=== PATIENT | female | born 1970 | race African-American/Black ===

== ENCOUNTER 2018-10-17 19:34 | Inpatient (IN) | payer OTHER ==
[~2018-10-17] VITALS: Ht 165.1 cm; Wt 164.8 kg
[~2018-10-17 19:34] MED LIST: ETOMIDATE 2MG/ML 10ML VIAL IV ONE; SUCCINYLCHOLINE CHLORIDE 200MG/10ML IV ONE
[2018-10-17] MEDS ORDERED: ETOMIDATE 2MG/ML 10ML VIAL IV ONE (20:00)
[2018-10-17] MEDS ORDERED: SUCCINYLCHOLINE CHLORIDE 200MG/10ML IV ONE (20:00)
[2018-10-17] MEDS ORDERED: LEVETIRACETAM 1000MG/100ML 100 ML IV ONE (20:00)
[2018-10-17] MEDS ORDERED: NICARDIPINE 40MG/200ML PREMIX 200 ML IV SCH (20:00)
[2018-10-17 20:02] LABS: BASOPHILS % 0.6 % (0.0-2.0); EOSINOPHILS % 1.9 % (0.0-5.0); HEMATOCRIT. 39.9 % (36.0-48.0); HEMOGLOBIN. 11.9 g/dL (12.0-16.0); LYMPHOCYTES % 43.3 % (20.0-50.0); MEAN CORPUSCULAR HEMOGLOBIN 19.6 pg (28.0-32.0); MEAN CORPUSCULAR VOLUME 65.8 fL (81.0-99.0); MEAN PLATELET VOLUME 9.2 fl (7.4-10.4); MONOCYTES % 5.8 % (2.0-8.0); NEUTROPHILS % 48.4 % (40.0-76.0); PLATELET 220 x1000/uL (130-400); RED BLOOD CELL COUNT 6.06 mill/uL (4.2-5.4); RED CELL DISTRIBUTION WIDTH 17.5 % (11.6-14.6)
[2018-10-17 20:07] LABS: CHLORIDE 101 mEq/L (98-107)
[2018-10-17 20:08] LABS: INR 1.1; PROTHROMBIN TIME 10.7 sec (9.1-11.1)
[2018-10-17 20:12] LABS: ETHANOL BLOOD < 10 mg/dL
[2018-10-17] MEDS ORDERED: MANNITOL 12.5G (25%) VIAL 50ML IV ONE ×2 (20:15→20:30)
[2018-10-17 20:26] LABS: PLATELET ESTIMATE NORMAL
[2018-10-17] MEDS ORDERED: KCL 20MEQ/100ML PREMIX 100 ML IV ONE (20:30)
[2018-10-17] MEDS ORDERED: MIDAZOLAM HCL 2 MG/2 ML VIAL IV ONE (20:30)
[2018-10-17] MEDS ORDERED: MIDAZOLAM HCL 50 MG in DEXTROSE 5% WATER 40 ML IV ONE ×2 (20:30→21:00)
[2018-10-17] MEDS ORDERED: IOHEXOL-350 100 ML BOTTLE ONE (21:48)
[2018-10-17 21:52] LABS: BG BASE EXCESS 1.2 mmol/L (-2.0-2.0); BG CARBOXYHEMOGLOBIN 0.6 % (0.5-1.5); BG DEOXYHEMOGLOBIN 6.3 % (0.0-5.0); BG FRACTION INSPIRED OXYGEN 50; BG HCO3 ACT 27.6 mmol/L (22.0-26.0); BG METHEMOGLOBIN 0.1 % (0.0-1.5); BG OXYGEN SATURATION 93.7 % (92.0-98.5); BG PCO2 51.8 mmHg (35.0-45.0); BG PEEP (cmH2O) 0 cmH2O; BG PH 7.345 (7.350-7.450); BG PO2 72.2 mmHg (75.0-100.0); BG SAMPLE SITE LEFT RADIAL; BG TIDAL VOLUME(mL) 550 mL; BG TOTAL HEMOGLOBIN 12.1 g/dL (12.0-18.0); BG VENT MODE VENT - A/C; BG VENT RATE 16 set
[2018-10-17 21:54] LABS: CLARITY URINE CLEAR (CLEAR); COLOR URINE YELLOW (YELLOW); KETONES URINE TRACE (NEGATIVE); LEUKOCYTE ESTERASE URINE NEGATIVE (NEGATIVE); NITRITE URINE POSITIVE (NEGATIVE); OCCULT BLOOD URINE TRACE (NEGATIVE); PH URINE 6.5 (4.5-8.0); PROTEIN URINE 2+ (NEGATIVE); SPECIFIC GRAVITY URINE 1.016 (1.005-1.030); UROBILINOGEN URINE 0.2 E.U./dL (0.2-1.0)
[2018-10-18] VITALS (83 sets, daily range): BP systolic 14–196; BP diastolic 13–104
[2018-10-18] MEDS ORDERED: MANNITOL 12.5G (25%) VIAL 50ML IV SCH (00:49)
[2018-10-18] MEDS ORDERED: NICARDIPINE 100 MG in SODIUM CHLORIDE 0.9% 60 ML IV PRN (01:00)
[2018-10-18] MEDS: DEXAMETHASONE 4MG/ML 1ML VIAL IV SCH ×4 (01:21→17:28)
[2018-10-18] MEDS: DEXT 5%/LACTATED RINGERS 1,000 ML IV SCH ×2 (01:21→17:14)
[2018-10-18] MEDS: NICARDIPINE 100 MG in SODIUM CHLORIDE 0.9% 60 ML IV PRN ×4 (01:22→18:08)
[2018-10-18] MEDS ORDERED: PIPERACILLIN/TAZ 3.375G PREMIX 50 ML IV ONE (01:30)
[2018-10-18] MEDS ORDERED: VANCOMYCIN 1 G PREMIX 200 ML IV ONE (01:30)
[2018-10-18] MEDS ORDERED: MANNITOL 20% IV SCH (02:00)
[2018-10-18] MEDS ORDERED: MIDAZOLAM HCL 50 MG in DEXTROSE 5% WATER 40 ML IV PRN (02:00)
[2018-10-18] MEDS: MANNITOL 20% (20GM/100ML) BAG 500ML PREMIX IV SCH ×2 (02:29→08:29)
[2018-10-18] MEDS ORDERED: MANNITOL 20% (20GM/100ML) BAG 500ML PREMIX IV SCH (03:30)
[2018-10-18 04:38] LABS: CLARITY URINE CLEAR (CLEAR); COLOR URINE YELLOW (YELLOW); KETONES URINE TRACE (NEGATIVE); LEUKOCYTE ESTERASE URINE NEGATIVE (NEGATIVE); NITRITE URINE NEGATIVE (NEGATIVE); OCCULT BLOOD URINE 2+ (NEGATIVE); PH URINE 6.5 (4.5-8.0); PROTEIN URINE 2+ (NEGATIVE); SPECIFIC GRAVITY URINE 1.034 (1.005-1.030); UROBILINOGEN URINE 0.2 E.U./dL (0.2-1.0)
[2018-10-18 04:45] LABS: METHADONE URINE SCREEN NEGATIVE (NEGATIVE); OPIATES URINE SCREEN NEGATIVE (NEGATIVE); PHENCYCLIDINE URINE SCREEN NEGATIVE (NEGATIVE)
[2018-10-18 04:46] LABS: *BARBITURATES SCREEN URINE NEGATIVE (NEGATIVE); *BENZODIAZEPINES SCREEN URINE PRESUMTIVE POSITIVE (NEGATIVE); *COCAINE SCREEN URINE NEGATIVE (NEGATIVE); CANNABINOID URINE SCREEN NEGATIVE (NEGATIVE)
[2018-10-18 04:47] LABS: *AMPHETAMINES SCREEN URINE NEGATIVE (NEGATIVE)
[2018-10-18 08:28] LABS: BG BASE EXCESS 2.2 mmol/L (-2.0-2.0); BG CARBOXYHEMOGLOBIN 0.5 % (0.5-1.5); BG DEOXYHEMOGLOBIN 4.4 % (0.0-5.0); BG FRACTION INSPIRED OXYGEN 60; BG HCO3 ACT 26.9 mmol/L (22.0-26.0); BG METHEMOGLOBIN 0.3 % (0.0-1.5); BG OXYGEN SATURATION 95.6 % (92.0-98.5); BG OXYHEMOGLOBIN 94.8 % (94.0-97.0); BG PCO2 42.3 mmHg (35.0-45.0); BG PH 7.421 (7.350-7.450); BG PO2 73.8 mmHg (75.0-100.0); BG SAMPLE SITE RIGHT RADIAL; BG TIDAL VOLUME(mL) 550 mL; BG TOTAL HEMOGLOBIN 11.6 g/dL (12.0-18.0); BG VENT MODE VENT - A/C; BG VENT RATE 22 set
[2018-10-18] MEDS ORDERED: DEXTROSE 50% WATER 50ML SYRINGE IV PRN (08:45)
[2018-10-18] MEDS: INSULIN LISPRO 100 UNITS/ML SUBCUT SCH ×4 (08:47→21:08)
[2018-10-18] MEDS ORDERED: LIDOCAINE HCL/EPINEPHRINE 1%-EPI 1:100,000 20 ML VIAL ONE (08:47)
[2018-10-18] MEDS: BLOOD SUGAR DIAGNOSTIC STRIP TEST SCH ×4 (08:47→21:00)
[2018-10-18] MEDS ORDERED: GELATIN SPONGE,ABSORBABLE 12-7MM SPONGE ONE (08:47)
[2018-10-18] MEDS ORDERED: NORMAL SALINE 0.9% 10 ML SYR ONE (08:48)
[2018-10-18] MEDS ORDERED: THROMBIN (BOVINE) 5000 UNITS/VIAL TOP ONE ×2 (08:48→08:49)
[2018-10-18] MEDS ORDERED: BACITRACIN 50,000 UNITS/VIAL ONE (08:49)
[2018-10-18] MEDS: LEVETIRACETAM 500 MG in SODIUM CHLORIDE 0.9% 100 ML IV SCH ×3 (09:00→21:08)
[2018-10-18] MEDS ORDERED: LEVETIRACETAM 500 MG in SODIUM CHLORIDE 0.9% 100 ML IV SCH (09:00)
[2018-10-18] MEDS: FAMOTIDINE 20MG/2ML VIAL IV SCH (09:00)
[2018-10-18] MEDS ORDERED: CEFAZOLIN SODIUM 1000MG/VIAL ONE (09:13)
[2018-10-18] MEDS: CEFTRIAXONE 1 G PREMIX 50 ML IV SCH (10:00)
[2018-10-18] MEDS ORDERED: BACITRACIN 15GM TUBE TOP ONE (10:10)
[2018-10-18] MEDS ORDERED: ROCURONIUM BROMIDE 10MG/ML VIAL 5ML IV ONE (10:10)
[2018-10-18 10:22] LABS: HEMATOCRIT. 37.9 % (36.0-48.0); HEMOGLOBIN. 11.5 g/dL (12.0-16.0); MEAN CORPUSCULAR HEMOGLOBIN 19.7 pg (28.0-32.0); MEAN CORPUSCULAR VOLUME 64.6 fL (81.0-99.0); MEAN PLATELET VOLUME 9.6 fl (7.4-10.4); PLATELET 195 x1000/uL (130-400); RED BLOOD CELL COUNT 5.87 mill/uL (4.2-5.4); RED CELL DISTRIBUTION WIDTH 17.2 % (11.6-14.6)
[2018-10-18 10:34] LABS: CHLORIDE 104 mEq/L (98-107)
[2018-10-18 10:41] LABS: LDL CHOLESTEROL 61 mg/dL (5-100)
[2018-10-18 10:42] LABS: CREATINE KINASE 512 IU/L (26-192); HDL CHOLESTEROL 49 mg/dL (40-59)
[2018-10-18] MEDS ORDERED: PROPOFOL 10MG/ML 100ML 100 ML IV PRN (11:00)
[2018-10-18] MEDS ORDERED: HYDRALAZINE 20MG/ML VIAL IV PRN (11:33)
[2018-10-18] MEDS ORDERED: LABETALOL HCL 20MG/4ML CARPUJECT IV NR (11:41)
[2018-10-18] MEDS ORDERED: MORPHINE SULFATE 10 MG/ML CPJ IV NR (11:45)
[2018-10-18] MEDS: PROPOFOL 10MG/ML 100ML 100 ML IV PRN ×6 (11:45→22:46)
[2018-10-18] MEDS ORDERED: LABETALOL HCL 20MG/4ML CARPUJECT IV ONE (11:48)
[2018-10-18] MEDS ORDERED: MORPHINE SULFATE 10 MG/ML CPJ ONE (11:53)
[2018-10-18 13:41] LABS: PLATELET ESTIMATE NORMAL
[2018-10-18] MEDS: MORPHINE SULFATE 4 MG/ML CPJ (NOT FOR IM USE) IV PRN ×2 (15:21→22:21)
[2018-10-19] VITALS (99 sets, daily range): BP systolic 0–176; BP diastolic 0–167
[2018-10-19] MEDS: PROPOFOL 10MG/ML 100ML 100 ML IV PRN ×8 (00:33→23:30)
[2018-10-19] MEDS: NICARDIPINE 100 MG in SODIUM CHLORIDE 0.9% 60 ML IV PRN ×4 (01:41→23:30)
[2018-10-19] MEDS: MORPHINE SULFATE 4 MG/ML CPJ (NOT FOR IM USE) IV PRN ×2 (01:44→07:51)
[2018-10-19] MEDS: BLOOD SUGAR DIAGNOSTIC STRIP TEST SCH ×5 (06:16→20:37)
[2018-10-19] MEDS: DEXAMETHASONE 4MG/ML 1ML VIAL IV SCH ×5 (06:23→23:16)
[2018-10-19] MEDS: DEXT 5%/LACTATED RINGERS 1,000 ML IV SCH (06:23)
[2018-10-19] MEDS: INSULIN LISPRO 100 UNITS/ML SUBCUT SCH ×4 (06:25→21:03)
[2018-10-19] MEDS ORDERED: LIDOCAINE HCL 1% 20ML VIAL (Pyxis) INJ ONE (08:16)
[2018-10-19] MEDS ORDERED: MANNITOL 20% 500 ML IV ONE (08:42)
[2018-10-19] MEDS ORDERED: MANNITOL 20% (20GM/100ML) BAG 500ML PREMIX IV ONE (08:45)
[2018-10-19] MEDS ORDERED: MANNITOL 20% 200 ML IV ONE (09:00)
[2018-10-19] MEDS: LEVETIRACETAM 500 MG in SODIUM CHLORIDE 0.9% 100 ML IV SCH ×2 (09:33→20:37)
[2018-10-19] MEDS: FAMOTIDINE 20MG/2ML VIAL IV SCH (09:37)
[2018-10-19] MEDS: CEFTRIAXONE 1 G PREMIX 50 ML IV SCH (10:09)
[2018-10-19] MEDS: MORPHINE SULFATE 100 MG in DEXT 5% WATER 90 ML IV PRN ×2 (10:12→19:08)
[2018-10-19] MEDS ORDERED: FUROSEMIDE 20MG/2ML VIAL IVP NR ×2 (12:45→21:30)
[2018-10-19] MEDS ORDERED: SODIUM CHLORIDE 3% 500 ML IV SCH (12:45)
[2018-10-19 13:02] LABS: BG CARBOXYHEMOGLOBIN 0.3 % (0.5-1.5); BG DEOXYHEMOGLOBIN 8.6 % (0.0-5.0); BG FRACTION INSPIRED OXYGEN 80; BG HCO3 ACT 21.2 mmol/L (22.0-26.0); BG OXYGEN SATURATION 91.4 % (92.0-98.5); BG OXYHEMOGLOBIN 91.1 % (94.0-97.0); BG PCO2 34.7 mmHg (35.0-45.0); BG PH 7.404 (7.350-7.450); BG PO2 63.8 mmHg (75.0-100.0); BG SAMPLE SITE A-LINE; BG TIDAL VOLUME(mL) 550 mL; BG TOTAL HEMOGLOBIN 10.2 g/dL (12.0-18.0); BG VENT MODE VENT - A/C; BG VENT RATE 22 set
[2018-10-19] MEDS: MANNITOL 20% 100 ML IV SCH ×2 (14:04→19:08)
[2018-10-19] MEDS: SODIUM CHLORIDE 3% 500 ML IV SCH (14:04)
[2018-10-19] MEDS ORDERED: MANNITOL 20% (20GM/100ML) BAG 500ML PREMIX IV SCH (15:00)
[2018-10-19] MEDS ORDERED: DEXTROSE 50% WATER 50ML SYRINGE IV PRN (19:00)
[2018-10-20] VITALS (111 sets, daily range): BP systolic 94–188; BP diastolic 46–181
[2018-10-20] MEDS: MANNITOL 20% 100 ML IV SCH ×3 (02:25→07:00)
[2018-10-20] MEDS: BLOOD SUGAR DIAGNOSTIC STRIP TEST SCH ×5 (06:09→21:00)
[2018-10-20] MEDS: DEXAMETHASONE 4MG/ML 1ML VIAL IV SCH ×4 (06:10→23:54)
[2018-10-20] MEDS: INSULIN LISPRO 100 UNITS/ML SUBCUT SCH ×4 (06:11→21:48)
[2018-10-20] MEDS: MORPHINE SULFATE 100 MG in DEXT 5% WATER 90 ML IV PRN ×2 (06:21→23:54)
[2018-10-20] MEDS: NICARDIPINE 100 MG in SODIUM CHLORIDE 0.9% 60 ML IV PRN ×2 (06:45→18:00)
[2018-10-20 06:52] LABS: BG BASE EXCESS -5.7 mmol/L (-2.0-2.0); BG CARBOXYHEMOGLOBIN 0.3 % (0.5-1.5); BG DEOXYHEMOGLOBIN 18.4 % (0.0-5.0); BG FRACTION INSPIRED OXYGEN 100; BG HCO3 ACT 22.2 mmol/L (22.0-26.0); BG METHEMOGLOBIN 0.2 % (0.0-1.5); BG OXYGEN SATURATION 81.5 % (92.0-98.5); BG OXYHEMOGLOBIN 81.1 % (94.0-97.0); BG PCO2 55.1 mmHg (35.0-45.0); BG PH 7.223 (7.350-7.450); BG SAMPLE SITE A-LINE; BG TIDAL VOLUME(mL) 550 mL; BG TOTAL HEMOGLOBIN 11.3 g/dL (12.0-18.0); BG VENT MODE VENT - A/C; BG VENT RATE 22 set
[2018-10-20 09:27] LABS: BG BASE EXCESS -6.1 mmol/L (-2.0-2.0); BG CARBOXYHEMOGLOBIN 0.2 % (0.5-1.5); BG DEOXYHEMOGLOBIN 15.3 % (0.0-5.0); BG FRACTION INSPIRED OXYGEN 100; BG HCO3 ACT 20.4 mmol/L (22.0-26.0); BG METHEMOGLOBIN 0.1 % (0.0-1.5); BG OXYGEN SATURATION 84.7 % (92.0-98.5); BG OXYHEMOGLOBIN 84.4 % (94.0-97.0); BG PCO2 44.7 mmHg (35.0-45.0); BG PH 7.278 (7.350-7.450); BG PO2 54.5 mmHg (75.0-100.0); BG SAMPLE SITE A-LINE; BG TIDAL VOLUME(mL) 550 mL; BG TOTAL HEMOGLOBIN 10.3 g/dL (12.0-18.0); BG VENT MODE VENT - A/C; BG VENT RATE 22 set
[2018-10-20] MEDS: FAMOTIDINE 20MG/2ML VIAL IV SCH (09:59)
[2018-10-20] MEDS: LEVETIRACETAM 500 MG in SODIUM CHLORIDE 0.9% 100 ML IV SCH ×2 (10:00→21:40)
[2018-10-20] MEDS: CEFTRIAXONE 1 G PREMIX 50 ML IV SCH (11:20)
[2018-10-20] MEDS: SODIUM CHLORIDE 3% 500 ML IV SCH (11:21)
[2018-10-20 11:22] LABS: BG BASE EXCESS -3.9 mmol/L (-2.0-2.0); BG CARBOXYHEMOGLOBIN 0.3 % (0.5-1.5); BG DEOXYHEMOGLOBIN 13.8 % (0.0-5.0); BG FRACTION INSPIRED OXYGEN 100; BG HCO3 ACT 21.8 mmol/L (22.0-26.0); BG METHEMOGLOBIN 0.2 % (0.0-1.5); BG OXYGEN SATURATION 86.1 % (92.0-98.5); BG OXYHEMOGLOBIN 85.7 % (94.0-97.0); BG PCO2 42.4 mmHg (35.0-45.0); BG PH 7.329 (7.350-7.450); BG PO2 52.3 mmHg (75.0-100.0); BG SAMPLE SITE A-LINE; BG TIDAL VOLUME(mL) 550 mL; BG TOTAL HEMOGLOBIN 10.7 g/dL (12.0-18.0); BG VENT MODE VENT - A/C; BG VENT RATE 22 set
[2018-10-20] MEDS ORDERED: IPRATROPIUM/ALBUTEROL 0.5-3(2.5)MG/3ML NEB HHN PRN (12:15)
[2018-10-20 13:29] LABS: BG BASE EXCESS -6.7 mmol/L (-2.0-2.0); BG CARBOXYHEMOGLOBIN 0.2 % (0.5-1.5); BG FRACTION INSPIRED OXYGEN 100; BG HCO3 ACT 18.3 mmol/L (22.0-26.0); BG METHEMOGLOBIN 0.4 % (0.0-1.5); BG OXYGEN SATURATION 86.9 % (92.0-98.5); BG OXYHEMOGLOBIN 86.4 % (94.0-97.0); BG PCO2 34.8 mmHg (35.0-45.0); BG PH 7.339 (7.350-7.450); BG PO2 55.9 mmHg (75.0-100.0); BG SAMPLE SITE A-LINE; BG TIDAL VOLUME(mL) 550 mL; BG TOTAL HEMOGLOBIN 9.6 g/dL (12.0-18.0); BG VENT MODE VENT - A/C; BG VENT RATE 22 set
[2018-10-20 14:06] LABS: HEMATOCRIT. 32.8 % (36.0-48.0); HEMOGLOBIN. 9.7 g/dL (12.0-16.0); LYMPHOCYTES % 7.2 % (20.0-50.0); MEAN CORPUSCULAR HEMOGLOBIN 19.5 pg (28.0-32.0); MEAN CORPUSCULAR VOLUME 65.5 fL (81.0-99.0); MEAN PLATELET VOLUME 9.5 fl (7.4-10.4); MONOCYTES % 9.9 % (2.0-8.0); NEUTROPHILS % 82.9 % (40.0-76.0); PLATELET 185 x1000/uL (130-400); RED BLOOD CELL COUNT 5.01 mill/uL (4.2-5.4); RED CELL DISTRIBUTION WIDTH 17.5 % (11.6-14.6)
[2018-10-20] MEDS ORDERED: VANCOMYCIN 2,000 MG in DEXT 5% WATER 500 ML IV NR (14:30)
[2018-10-20] MEDS: PIPERACILLIN/TAZ 3.375G PREMIX 50 ML IV SCH ×2 (14:36→22:27)
[2018-10-20 15:18] LABS: BG BASE EXCESS -4.8 mmol/L (-2.0-2.0); BG CARBOXYHEMOGLOBIN 0.3 % (0.5-1.5); BG DEOXYHEMOGLOBIN 13.1 % (0.0-5.0); BG FRACTION INSPIRED OXYGEN 100; BG HCO3 ACT 19.1 mmol/L (22.0-26.0); BG METHEMOGLOBIN 0.2 % (0.0-1.5); BG OXYGEN SATURATION 86.8 % (92.0-98.5); BG OXYHEMOGLOBIN 86.4 % (94.0-97.0); BG PCO2 31.4 mmHg (35.0-45.0); BG PH 7.402 (7.350-7.450); BG PO2 49.9 mmHg (75.0-100.0); BG SAMPLE SITE A-LINE; BG TIDAL VOLUME(mL) 610 mL; BG TOTAL HEMOGLOBIN 10.3 g/dL (12.0-18.0); BG VENT MODE VENT - A/C; BG VENT RATE 26 set
[2018-10-20] MEDS: DEXT 5%/LACTATED RINGERS 1,000 ML IV SCH ×2 (16:00→23:55)
[2018-10-20] MEDS ORDERED: FUROSEMIDE 40MG/4ML VIAL IVP NR (16:30)
[2018-10-20] MEDS: IPRATROPIUM/ALBUTEROL 0.5-3(2.5)MG/3ML NEB HHN SCH (20:01)
[2018-10-20] MEDS ORDERED: INSULIN GLARGINE UD 100 UNITS/ML SYR SUBCUT SCH (22:00)
[2018-10-21] VITALS (97 sets, daily range): BP systolic 69–145; BP diastolic 38–86
[2018-10-21 00:27] LABS: SODIUM URINE RANDOM < 5 mEq/L
[2018-10-21] MEDS: IPRATROPIUM/ALBUTEROL 0.5-3(2.5)MG/3ML NEB HHN SCH ×4 (02:29→21:18)
[2018-10-21 05:25] LABS: BASOPHILS % 0.2 % (0.0-2.0); HEMATOCRIT. 32.6 % (36.0-48.0); LYMPHOCYTES % 7.6 % (20.0-50.0); MEAN CORPUSCULAR VOLUME 65.2 fL (81.0-99.0); MEAN PLATELET VOLUME 10.2 fl (7.4-10.4); MONOCYTES % 11.8 % (2.0-8.0); NEUTROPHILS % 80.4 % (40.0-76.0); PLATELET 228 x1000/uL (130-400); RED CELL DISTRIBUTION WIDTH 17.2 % (11.6-14.6)
[2018-10-21 05:26] LABS: CHLORIDE 115 mEq/L (98-107)
[2018-10-21 05:35] LABS: PHOSPHORUS 5.4 mg/dL (2.5-4.9)
[2018-10-21] MEDS: DEXAMETHASONE 4MG/ML 1ML VIAL IV SCH ×4 (05:47→23:53)
[2018-10-21] MEDS: PIPERACILLIN/TAZ 3.375G PREMIX 50 ML IV SCH ×3 (05:47→21:34)
[2018-10-21] MEDS ORDERED: INSULIN LISPRO 100 UNITS/ML SUBCUT SCH (06:00)
[2018-10-21] MEDS ORDERED: BLOOD SUGAR DIAGNOSTIC STRIP TEST SCH ×2 (06:00→11:45)
[2018-10-21 08:05] LABS: BG BASE EXCESS -4.9 mmol/L (-2.0-2.0); BG DEOXYHEMOGLOBIN 13.9 % (0.0-5.0); BG FRACTION INSPIRED OXYGEN 100; BG HCO3 ACT 18.6 mmol/L (22.0-26.0); BG OXYGEN SATURATION 86.1 % (92.0-98.5); BG OXYHEMOGLOBIN 86.1 % (94.0-97.0); BG PCO2 29.2 mmHg (35.0-45.0); BG PH 7.423 (7.350-7.450); BG PO2 52.8 mmHg (75.0-100.0); BG SAMPLE SITE A-LINE; BG TIDAL VOLUME(mL) 610 mL; BG TOTAL HEMOGLOBIN 9.6 g/dL (12.0-18.0); BG VENT MODE VENT - A/C; BG VENT RATE 26 set
[2018-10-21] MEDS ORDERED: FUROSEMIDE 40MG/4ML VIAL IVP SCH (09:00)
[2018-10-21] MEDS: FAMOTIDINE 20MG/2ML VIAL IV SCH (09:09)
[2018-10-21] MEDS: LEVETIRACETAM 500 MG in SODIUM CHLORIDE 0.9% 100 ML IV SCH ×2 (09:09→20:56)
[2018-10-21] MEDS: NICARDIPINE 100 MG in SODIUM CHLORIDE 0.9% 60 ML IV PRN (09:10)
[2018-10-21] MEDS ORDERED: INSULIN GLARGINE UD 100 UNITS/ML SYR SUBCUT SCH (10:00)
[2018-10-21] MEDS: MORPHINE SULFATE 100 MG in DEXT 5% WATER 90 ML IV PRN (10:20)
[2018-10-21] MEDS ORDERED: DEXTROSE 50% WATER 50ML SYRINGE IV PRN ×4 (11:00→11:45)
[2018-10-21] MEDS: BLOOD SUGAR DIAGNOSTIC STRIP TEST SCH ×3 (11:00→23:00)
[2018-10-21] MEDS ORDERED: INSULIN REGULAR (DRIP) 100 UNITS in SODIUM CHLORIDE 0.9% 100 ML IV SCH (11:45)
[2018-10-21] MEDS: INSULIN REGULAR (DRIP) 100 UNITS in SODIUM CHLORIDE 0.9% 99 ML IV SCH (11:47)
[2018-10-21] MEDS ORDERED: SODIUM CHLORIDE 0.9% 1,000 ML IV SCH (21:45)
[2018-10-22] VITALS (99 sets, daily range): BP systolic 90–148; BP diastolic 46–85
[2018-10-22] MEDS: INSULIN REGULAR (DRIP) 100 UNITS in SODIUM CHLORIDE 0.9% 99 ML IV SCH ×3 (00:02→22:12)
[2018-10-22] MEDS: MORPHINE SULFATE 100 MG in DEXT 5% WATER 90 ML IV PRN ×2 (00:04→23:17)
[2018-10-22] MEDS: BLOOD SUGAR DIAGNOSTIC STRIP TEST SCH ×22 (01:00→23:18)
[2018-10-22] MEDS: NICARDIPINE 100 MG in SODIUM CHLORIDE 0.9% 60 ML IV PRN ×3 (02:14→23:16)
[2018-10-22] MEDS: DEXAMETHASONE 4MG/ML 1ML VIAL IV SCH ×3 (05:48→17:09)
[2018-10-22] MEDS: PIPERACILLIN/TAZ 3.375G PREMIX 50 ML IV SCH ×3 (05:48→21:31)
[2018-10-22 05:54] LABS: BASOPHILS % 0.1 % (0.0-2.0); EOSINOPHILS % 0.2 % (0.0-5.0); HEMOGLOBIN. 10.1 g/dL (12.0-16.0); LYMPHOCYTES % 7.1 % (20.0-50.0); MEAN CORPUSCULAR HEMOGLOBIN 19.7 pg (28.0-32.0); MEAN CORPUSCULAR VOLUME 66.2 fL (81.0-99.0); MEAN PLATELET VOLUME 9.6 fl (7.4-10.4); MONOCYTES % 7.9 % (2.0-8.0); NEUTROPHILS % 84.7 % (40.0-76.0); PLATELET 192 x1000/uL (130-400); RED BLOOD CELL COUNT 5.13 mill/uL (4.2-5.4); RED CELL DISTRIBUTION WIDTH 17.3 % (11.6-14.6)
[2018-10-22 07:14] LABS: PHOSPHORUS 4.4 mg/dL (2.5-4.9)
[2018-10-22] MEDS: IPRATROPIUM/ALBUTEROL 0.5-3(2.5)MG/3ML NEB HHN SCH ×3 (08:29→20:18)
[2018-10-22] MEDS: LEVETIRACETAM 500 MG in SODIUM CHLORIDE 0.9% 100 ML IV SCH ×2 (09:17→20:30)
[2018-10-22] MEDS: FAMOTIDINE 20MG/2ML VIAL IV SCH (09:17)
[2018-10-22] MEDS ORDERED: VANCOMYCIN 1500MG in DEXTROSE 5% WATER 250ML IV NR (10:00)
[2018-10-22] MEDS: SODIUM CHL 0.45% + KCL 20MEQ/L 1,000 ML IV SCH (10:36)
[2018-10-22 12:20] LABS: BG BASE EXCESS -4.6 mmol/L (-2.0-2.0); BG CARBOXYHEMOGLOBIN 0.3 % (0.5-1.5); BG DEOXYHEMOGLOBIN 15.2 % (0.0-5.0); BG FRACTION INSPIRED OXYGEN 100; BG HCO3 ACT 18.8 mmol/L (22.0-26.0); BG METHEMOGLOBIN 0.1 % (0.0-1.5); BG OXYGEN SATURATION 84.7 % (92.0-98.5); BG OXYHEMOGLOBIN 84.4 % (94.0-97.0); BG SAMPLE SITE A-LINE; BG TIDAL VOLUME(mL) 650 mL; BG VENT MODE VENT - A/C; BG VENT RATE 24 set
[2018-10-23] VITALS (80 sets, daily range): BP systolic 84–144; BP diastolic 52–108
[2018-10-23] MEDS: BLOOD SUGAR DIAGNOSTIC STRIP TEST SCH ×15 (00:16→23:00)
[2018-10-23] MEDS: DEXAMETHASONE 4MG/ML 1ML VIAL IV SCH ×5 (00:17→22:59)
[2018-10-23] MEDS: SODIUM CHL 0.45% + KCL 20MEQ/L 1,000 ML IV SCH (01:13)
[2018-10-23] MEDS: IPRATROPIUM/ALBUTEROL 0.5-3(2.5)MG/3ML NEB HHN SCH ×4 (01:22→21:11)
[2018-10-23] MEDS: PIPERACILLIN/TAZ 3.375G PREMIX 50 ML IV SCH ×3 (06:00→20:56)
[2018-10-23 07:00] LABS: BASOPHILS % 0.2 % (0.0-2.0); HEMATOCRIT. 33.9 % (36.0-48.0); HEMOGLOBIN. 10.1 g/dL (12.0-16.0); LYMPHOCYTES % 7.8 % (20.0-50.0); MEAN CORPUSCULAR HEMOGLOBIN 19.5 pg (28.0-32.0); MEAN CORPUSCULAR VOLUME 65.5 fL (81.0-99.0); MEAN PLATELET VOLUME 9.9 fl (7.4-10.4); MONOCYTES % 8.7 % (2.0-8.0); NEUTROPHILS % 83.3 % (40.0-76.0); PLATELET 201 x1000/uL (130-400); RED BLOOD CELL COUNT 5.18 mill/uL (4.2-5.4)
[2018-10-23 08:13] LABS: BG BASE EXCESS -4.8 mmol/L (-2.0-2.0); BG CARBOXYHEMOGLOBIN 0.3 % (0.5-1.5); BG DEOXYHEMOGLOBIN 8.3 % (0.0-5.0); BG HCO3 ACT 18.9 mmol/L (22.0-26.0); BG METHEMOGLOBIN 0.2 % (0.0-1.5); BG OXYGEN SATURATION 91.7 % (92.0-98.5); BG OXYHEMOGLOBIN 91.2 % (94.0-97.0); BG PCO2 30.1 mmHg (35.0-45.0); BG PH 7.416 (7.350-7.450); BG PO2 65.4 mmHg (75.0-100.0); BG SAMPLE SITE A-LINE; BG TIDAL VOLUME(mL) 650 mL; BG TOTAL HEMOGLOBIN 9.9 g/dL (12.0-18.0); BG VENT MODE VENT - A/C; BG VENT RATE 24 set
[2018-10-23 08:15] LABS: PHOSPHORUS 4.5 mg/dL (2.5-4.9)
[2018-10-23] MEDS: DEXTROSE 5% WATER 1,000 ML IV SCH ×2 (10:00→20:57)
[2018-10-23] MEDS: NICARDIPINE 100 MG in SODIUM CHLORIDE 0.9% 60 ML IV PRN ×2 (10:00→22:53)
[2018-10-23] MEDS: FAMOTIDINE 20MG/2ML VIAL IV SCH (10:00)
[2018-10-23] MEDS: LEVETIRACETAM 500 MG in SODIUM CHLORIDE 0.9% 100 ML IV SCH ×2 (10:00→20:56)
[2018-10-23] MEDS ORDERED: DEXTROSE 50% WATER 50ML SYRINGE IV PRN (10:15)
[2018-10-23] MEDS: INSULIN GLARGINE UD 100 UNITS/ML SYR SUBCUT SCH ×2 (11:40→22:55)
[2018-10-23] MEDS: MORPHINE SULFATE 100 MG in DEXT 5% WATER 90 ML IV PRN (12:16)
[2018-10-23] MEDS: INSULIN LISPRO 100 UNITS/ML SUBCUT SCH ×3 (12:43→23:00)
[2018-10-23 21:03] LABS: SODIUM URINE RANDOM 17 mEq/L
[2018-10-24] VITALS (92 sets, daily range): BP systolic 120–142; BP diastolic 60–79
[2018-10-24] MEDS: MORPHINE SULFATE 100 MG in DEXT 5% WATER 90 ML IV PRN ×2 (01:02→14:51)
[2018-10-24] MEDS: IPRATROPIUM/ALBUTEROL 0.5-3(2.5)MG/3ML NEB HHN SCH ×3 (02:20→20:51)
[2018-10-24 04:54] LABS: HEMATOCRIT. 33.7 % (36.0-48.0); HEMOGLOBIN. 9.8 g/dL (12.0-16.0); MEAN CORPUSCULAR HEMOGLOBIN 19.3 pg (28.0-32.0); MEAN CORPUSCULAR VOLUME 66.3 fL (81.0-99.0); MEAN PLATELET VOLUME 9.9 fl (7.4-10.4); PLATELET 201 x1000/uL (130-400); RED BLOOD CELL COUNT 5.09 mill/uL (4.2-5.4); RED CELL DISTRIBUTION WIDTH 17.4 % (11.6-14.6)
[2018-10-24] MEDS: BLOOD SUGAR DIAGNOSTIC STRIP TEST SCH ×15 (05:00→23:00)
[2018-10-24] MEDS: INSULIN LISPRO 100 UNITS/ML SUBCUT SCH (05:01)
[2018-10-24] MEDS: PIPERACILLIN/TAZ 3.375G PREMIX 50 ML IV SCH ×3 (05:01→22:13)
[2018-10-24] MEDS: DEXAMETHASONE 4MG/ML 1ML VIAL IV SCH ×3 (05:01→17:14)
[2018-10-24 05:03] LABS: CHLORIDE 127 mEq/L (98-107)
[2018-10-24 05:14] LABS: PHOSPHORUS 4.3 mg/dL (2.5-4.9)
[2018-10-24] MEDS: DEXTROSE 5% WATER 1,000 ML IV SCH ×4 (05:45→20:12)
[2018-10-24 08:42] LABS: BG BASE EXCESS -6.3 mmol/L (-2.0-2.0); BG CARBOXYHEMOGLOBIN 0.1 % (0.5-1.5); BG DEOXYHEMOGLOBIN 7.5 % (0.0-5.0); BG FRACTION INSPIRED OXYGEN 100; BG HCO3 ACT 17.9 mmol/L (22.0-26.0); BG METHEMOGLOBIN 0.2 % (0.0-1.5); BG OXYGEN SATURATION 92.5 % (92.0-98.5); BG OXYHEMOGLOBIN 92.2 % (94.0-97.0); BG PCO2 30.9 mmHg (35.0-45.0); BG PH 7.381 (7.350-7.450); BG PO2 71.2 mmHg (75.0-100.0); BG SAMPLE SITE RIGHT RADIAL; BG TIDAL VOLUME(mL) 650 mL; BG TOTAL HEMOGLOBIN 10.3 g/dL (12.0-18.0); BG VENT MODE VENT - A/C; BG VENT RATE 24 set
[2018-10-24] MEDS: FAMOTIDINE 20MG/2ML VIAL IV SCH (09:23)
[2018-10-24] MEDS: LEVETIRACETAM 500 MG in SODIUM CHLORIDE 0.9% 100 ML IV SCH ×2 (09:23→20:47)
[2018-10-24] MEDS ORDERED: INSULIN GLARGINE UD 100 UNITS/ML SYR SUBCUT SCH ×2 (10:00→14:15)
[2018-10-24] MEDS ORDERED: VANCOMYCIN 1,750 MG in DEXT 5% WATER 500 ML IV NR (10:00)
[2018-10-24 11:20] LABS: PLATELET ESTIMATE NORMAL
[2018-10-24] MEDS: INSULIN REGULAR (DRIP) 100 UNITS in SODIUM CHLORIDE 0.9% 99 ML IV PRN ×2 (11:25→16:51)
[2018-10-24] MEDS ORDERED: INSULIN LISPRO 100 UNITS/ML SUBCUT SCH (12:00)
[2018-10-24] MEDS ORDERED: BLOOD SUGAR DIAGNOSTIC STRIP TEST SCH (12:00)
[2018-10-24] MEDS: NICARDIPINE 100 MG in SODIUM CHLORIDE 0.9% 60 ML IV PRN (14:49)
[2018-10-24] MEDS: INSULIN REGULAR (DRIP) 100 UNITS in SODIUM CHLORIDE 0.9% 100 ML IV SCH (22:51)
[2018-10-25] VITALS (96 sets, daily range): BP systolic 121–167; BP diastolic 67–102
[2018-10-25] MEDS: DEXAMETHASONE 4MG/ML 1ML VIAL IV SCH ×3 (00:03→11:27)
[2018-10-25] MEDS: BLOOD SUGAR DIAGNOSTIC STRIP TEST SCH ×24 (00:56→23:00)
[2018-10-25] MEDS: NICARDIPINE 100 MG in SODIUM CHLORIDE 0.9% 60 ML IV PRN ×2 (02:38→10:58)
[2018-10-25] MEDS: MORPHINE SULFATE 100 MG in DEXT 5% WATER 90 ML IV PRN (02:38)
[2018-10-25] MEDS: DEXTROSE 5% WATER 1,000 ML IV SCH ×3 (02:46→20:45)
[2018-10-25 05:47] LABS: HEMATOCRIT. 34.7 % (36.0-48.0); HEMOGLOBIN. 10.1 g/dL (12.0-16.0); MEAN CORPUSCULAR HEMOGLOBIN 19.3 pg (28.0-32.0); MEAN CORPUSCULAR VOLUME 66.7 fL (81.0-99.0); MEAN PLATELET VOLUME 9.6 fl (7.4-10.4); PLATELET 190 x1000/uL (130-400); RED CELL DISTRIBUTION WIDTH 17.4 % (11.6-14.6)
[2018-10-25 05:51] LABS: PHOSPHORUS 3.3 mg/dL (2.5-4.9)
[2018-10-25] MEDS: PIPERACILLIN/TAZ 3.375G PREMIX 50 ML IV SCH ×3 (06:40→21:14)
[2018-10-25 07:40] LABS: BG BASE EXCESS -2.5 mmol/L (-2.0-2.0); BG CARBOXYHEMOGLOBIN 0.3 % (0.5-1.5); BG DEOXYHEMOGLOBIN 4.6 % (0.0-5.0); BG HCO3 ACT 21.8 mmol/L (22.0-26.0); BG METHEMOGLOBIN 0.3 % (0.0-1.5); BG OXYGEN SATURATION 95.4 % (92.0-98.5); BG OXYHEMOGLOBIN 94.8 % (94.0-97.0); BG PCO2 35.6 mmHg (35.0-45.0); BG PH 7.404 (7.350-7.450); BG PO2 83.4 mmHg (75.0-100.0); BG SAMPLE SITE RIGHT RADIAL; BG TIDAL VOLUME(mL) 650 mL; BG TOTAL HEMOGLOBIN 10.6 g/dL (12.0-18.0); BG VENT MODE VENT - A/C; BG VENT RATE 24 set
[2018-10-25] MEDS: LEVETIRACETAM 500 MG in SODIUM CHLORIDE 0.9% 100 ML IV SCH ×2 (08:48→20:31)
[2018-10-25] MEDS: FAMOTIDINE 20MG/2ML VIAL IV SCH (08:56)
[2018-10-25] MEDS: IPRATROPIUM/ALBUTEROL 0.5-3(2.5)MG/3ML NEB HHN SCH ×3 (09:12→20:06)
[2018-10-25] MEDS: INSULIN REGULAR (DRIP) 100 UNITS in SODIUM CHLORIDE 0.9% 100 ML IV SCH ×2 (09:43→20:32)
[2018-10-25 11:10] LABS: PLATELET ESTIMATE NORMAL
[2018-10-25] MEDS ORDERED: VANCOMYCIN 1 G PREMIX 200 ML IV SCH (13:00)
[2018-10-26] VITALS (101 sets, daily range): BP systolic 119–171; BP diastolic 64–99
[2018-10-26] MEDS: BLOOD SUGAR DIAGNOSTIC STRIP TEST SCH ×23 (01:00→23:00)
[2018-10-26] MEDS: IPRATROPIUM/ALBUTEROL 0.5-3(2.5)MG/3ML NEB HHN SCH ×4 (01:56→20:24)
[2018-10-26] MEDS: PIPERACILLIN/TAZ 3.375G PREMIX 50 ML IV SCH ×4 (02:13→20:05)
[2018-10-26] MEDS: NICARDIPINE 100 MG in SODIUM CHLORIDE 0.9% 60 ML IV PRN ×3 (02:14→15:23)
[2018-10-26 06:19] LABS: BASOPHILS % 0.3 % (0.0-2.0); EOSINOPHILS % 0.1 % (0.0-5.0); HEMOGLOBIN. 10.5 g/dL (12.0-16.0); LYMPHOCYTES % 7.5 % (20.0-50.0); MEAN CORPUSCULAR HEMOGLOBIN 19.3 pg (28.0-32.0); MEAN CORPUSCULAR VOLUME 66.5 fL (81.0-99.0); MEAN PLATELET VOLUME 9.8 fl (7.4-10.4); MONOCYTES % 9.2 % (2.0-8.0); NEUTROPHILS % 82.9 % (40.0-76.0); PLATELET 185 x1000/uL (130-400); RED BLOOD CELL COUNT 5.42 mill/uL (4.2-5.4); RED CELL DISTRIBUTION WIDTH 17.4 % (11.6-14.6)
[2018-10-26] MEDS: DEXTROSE 5% WATER 1,000 ML IV SCH ×2 (06:29→18:35)
[2018-10-26] MEDS: INSULIN REGULAR (DRIP) 100 UNITS in SODIUM CHLORIDE 0.9% 100 ML IV SCH ×3 (06:29→23:26)
[2018-10-26 08:10] LABS: BG BASE EXCESS -2.1 mmol/L (-2.0-2.0); BG CARBOXYHEMOGLOBIN 0.5 % (0.5-1.5); BG DEOXYHEMOGLOBIN 3.6 % (0.0-5.0); BG HCO3 ACT 21.5 mmol/L (22.0-26.0); BG METHEMOGLOBIN 0.3 % (0.0-1.5); BG OXYGEN SATURATION 96.4 % (92.0-98.5); BG OXYHEMOGLOBIN 95.6 % (94.0-97.0); BG PCO2 33.2 mmHg (35.0-45.0); BG PO2 85.2 mmHg (75.0-100.0); BG SAMPLE SITE RIGHT RADIAL; BG TIDAL VOLUME(mL) 650 mL; BG TOTAL HEMOGLOBIN 11.7 g/dL (12.0-18.0); BG VENT MODE VENT - A/C; BG VENT RATE 24 set
[2018-10-26] MEDS: DEXAMETHASONE 4MG TABLET NG SCH (09:04)
[2018-10-26] MEDS: FAMOTIDINE 20MG/2ML VIAL IV SCH (09:04)
[2018-10-26] MEDS: LEVETIRACETAM 500 MG in SODIUM CHLORIDE 0.9% 100 ML IV SCH ×2 (09:04→21:03)
[2018-10-26] MEDS ORDERED: VANCOMYCIN 1250MG in DEXTROSE 5% WATER 250ML IV SCH (14:00)
[2018-10-26] MEDS: MORPHINE SULFATE 100 MG in DEXT 5% WATER 90 ML IV PRN (18:16)
[2018-10-26] MEDS ORDERED: INSULIN GLARGINE UD 100 UNITS/ML SYR SUBCUT SCH (22:00)
[2018-10-27] VITALS (53 sets, daily range): BP systolic 34–150; BP diastolic 20–99
[2018-10-27] MEDS: NICARDIPINE 100 MG in SODIUM CHLORIDE 0.9% 60 ML IV PRN (00:09)
[2018-10-27] MEDS: ACETAMINOPHEN 650MG/20.3ML UDC PO PRN ×2 (00:09→10:58)
[2018-10-27] MEDS: BLOOD SUGAR DIAGNOSTIC STRIP TEST SCH ×13 (01:00→12:13)
[2018-10-27] MEDS: IPRATROPIUM/ALBUTEROL 0.5-3(2.5)MG/3ML NEB HHN SCH ×2 (01:07→08:51)
[2018-10-27] MEDS: PIPERACILLIN/TAZ 3.375G PREMIX 50 ML IV SCH ×2 (02:21→08:50)
[2018-10-27] MEDS: MORPHINE SULFATE 100 MG in DEXT 5% WATER 90 ML IV PRN (06:28)
[2018-10-27 07:08] LABS: BASOPHILS % 0.4 % (0.0-2.0); EOSINOPHILS % 0.3 % (0.0-5.0); HEMATOCRIT. 35.1 % (36.0-48.0); HEMOGLOBIN. 10.2 g/dL (12.0-16.0); LYMPHOCYTES % 7.5 % (20.0-50.0); MEAN CORPUSCULAR HEMOGLOBIN 19.4 pg (28.0-32.0); MEAN PLATELET VOLUME 10.7 fl (7.4-10.4); MONOCYTES % 6.9 % (2.0-8.0); NEUTROPHILS % 84.9 % (40.0-76.0); PLATELET 183 x1000/uL (130-400); RED BLOOD CELL COUNT 5.24 mill/uL (4.2-5.4); RED CELL DISTRIBUTION WIDTH 17.1 % (11.6-14.6)
[2018-10-27] MEDS: FAMOTIDINE 20MG/2ML VIAL IV SCH (08:49)
[2018-10-27] MEDS: DEXAMETHASONE 4MG TABLET NG SCH (08:49)
[2018-10-27] MEDS: LEVETIRACETAM 500 MG in SODIUM CHLORIDE 0.9% 100 ML IV SCH (08:50)
[2018-10-27] MEDS: INSULIN REGULAR (DRIP) 100 UNITS in SODIUM CHLORIDE 0.9% 100 ML IV SCH (09:49)
[2018-10-27] MEDS ORDERED: INSULIN GLARGINE UD 100 UNITS/ML SYR SUBCUT SCH (10:00)
[2018-10-27] MEDS ORDERED: VANCOMYCIN 1500MG in DEXTROSE 5% WATER 250ML IV SCH (12:00)
[2018-10-27] MEDS ORDERED: MORPHINE SULFATE 250 MG in DEXT 5% WATER 240 ML IV PRN (13:30)
[2018-10-27] MEDS ORDERED: PIPERACILLIN/TAZ 3.375G PREMIX 50 ML IV SCH (15:00)
== END 2018-10-27 13:30 | disposition expired | DRG 853 ==
LOC: ER 19:34 → EDBD 22:08 → MICUSO 22:08 → EDBEDREQSVC 22:09 → EDBEDREQ 22:09 → EDBEDREQTM 22:09 → ENRESERV 23:29
PROVIDERS: ADMIT Family Medicine; ATTEND Family Medicine
PROC: 00C70ZZ Extirpation of Matter from Cerebral Hemisphere, Open Approach (ICD-10-PCS; principal; 2018-10-18)
PROC: 00H602Z Insertion of Monitoring Device into Cerebral Ventricle, Open Approach (ICD-10-PCS; 2018-10-18)
PROC: 00U207Z Supplement Dura Mater with Autologous Tissue Substitute, Open Approach (ICD-10-PCS; 2018-10-18)
PROC: 009600Z Drainage of Cerebral Ventricle with Drainage Device, Open Approach (ICD-10-PCS; 2018-10-18)
PROC: 0NQ00ZZ Repair Skull, Open Approach (ICD-10-PCS; 2018-10-18)
PROC: 5A1955Z Respiratory Ventilation, Greater than 96 Consecutive Hours (ICD-10-PCS; 2018-10-19)
PROC: 0BH18EZ Insertion of Endotracheal Airway into Trachea, Via Natural or Artificial Opening Endoscopic (ICD-10-PCS; 2018-10-19)
PROC: 05H633Z Insertion of Infusion Device into Left Subclavian Vein, Percutaneous Approach (ICD-10-PCS; 2018-10-19)
PROC: B547ZZA Ultrasonography of Left Subclavian Vein, Guidance (ICD-10-PCS; 2018-10-19)
DX: A41.9 Sepsis, unspecified organism (principal); R65.21 Severe sepsis with septic shock; N17.0 Acute kidney failure with tubular necrosis; I50.33 Acute on chronic diastolic (congestive) heart failure; J96.02 Acute respiratory failure with hypercapnia; J96.01 Acute respiratory failure with hypoxia; J69.0 Pneumonitis due to inhalation of food and vomit; I61.1 Nontraumatic intracerebral hemorrhage in hemisphere, cortical; G92 Toxic encephalopathy; G93.6 Cerebral edema; E87.0 Hyperosmolality and hypernatremia; Z68.43 Body mass index [BMI] 50.0-59.9, adult; I46.9 Cardiac arrest, cause unspecified; Z51.5 Encounter for palliative care; Z66 Do not resuscitate; D64.9 Anemia, unspecified; E87.6 Hypokalemia; E11.65 Type 2 diabetes mellitus with hyperglycemia; E78.1 Pure hyperglyceridemia; I11.0 Hypertensive heart disease with heart failure; D63.8 Anemia in other chronic diseases classified elsewhere; I27.20 Pulmonary hypertension, unspecified; T38.0X5A Adverse effect of glucocorticoids and synthetic analogues, initial encounter; E66.01 Morbid (severe) obesity due to excess calories; Y92.89 Other specified places as the place of occurrence of the external cause; Z79.899 Other long term (current) drug therapy; Z91.14 Patient's other noncompliance with medication regimen
CPT/HCPCS: 36415; 36569; 36600; 70496; 70498; 71045; 76770; 76937; 78580; 80048; 80061; 80202; 80305; 82375; 82550; 82570; 82805; 82962; 83036; 83735; 83935; 84100; 84145; 84295; 84300; 84478; 84484; 85379; 86850; 86900; 87106; 88304; 93005; 93306; 93880; 93970; 94002; 94003; 94640; 99291; C1713; C1725; C1758; J0330; J0360; J0690; J0696; J1100; J1815; J1940; J1953; J2150; J2250; J2270; J2543; J2704; J3370; J3480; J3490; J7040; J7050; J7060; J7070; J7120; J7121; J7620; J8540; L3908; Q9967; A4315